=== PATIENT | female | born 1975 | race Caucasian/White ===

== ENCOUNTER 2016-06-05 15:59 | Emergency (ER) | payer BC ==
[~2016-06-05] VITALS: Ht 177.8 cm; Wt 79.4 kg
[2016-06-05 16:47] VITALS: BP 118/70
== END 2016-06-05 17:34 | disposition home or self-care (01) ==
LOC: ER 16:05
DX: T78.3XXA Angioneurotic edema, initial encounter (principal); Z72.0 Tobacco use
CPT/HCPCS: 99283; A4606; Z7610

== ENCOUNTER 2019-09-18 18:54 | Emergency (ER) | payer MEDICAID ==
[~2019-09-18] VITALS: Ht 188 cm; Wt 85.3 kg
--- NOTE | 2019-09-18 19:07 | NUR ---
URINE COLLECTED AND SENT TO THE LAB.
[2019-09-18] MEDS ORDERED: KETOROLAC TROMETHAMINE INJ 30 MG/ML VIAL ONE (19:20)
[2019-09-18] MEDS ORDERED: ONDANSETRON HCL/PF 4 MG/2 ML VIAL ONE (19:20)
--- NOTE | 2019-09-18 19:20 | NUR ---
PATIENT CAME TO ER BED 3 C/O LEFT FLANK PAIN SINCE LAST NIGHT. DENIES DYSURIA, DENIES HEMATURIA. AAOX4. NO SOB. BREATHING EVENLY AND UNLABORED ON ROOM AIR. CONNECTED TO MONITOR.
[2019-09-18] MEDS ORDERED: IV NS 0.9% 1,000 ML BAG IV ONE (19:30)
[2019-09-18] MEDS ORDERED: KETOROLAC TROMETHAMINE INJ 30 MG/ML VIAL IV ONE (19:30)
[2019-09-18] MEDS ORDERED: ONDANSETRON HCL/PF 4 MG/2 ML VIAL IVP ONE (19:30)
--- NOTE | 2019-09-18 19:30 | NUR ---
BLOOD COLLECTED AND SENT TO THE LAB.
[2019-09-18 19:33] LABS: BASOPHILS # (AUTO) 0.1 /CMM (0.0-0.2); BASOPHILS % (AUTO) 0.8 % (0.0-2.0); EOSINOPHILS % (AUTO) 1.9 % (0.0-6.0); HEMATOCRIT 49 % (39-51); HEMOGLOBIN 16.2 g/dL (13.5-17.5); LYMPHOCYTES # (AUTO) 2.8 /CMM (0.8-4.8); LYMPHOCYTES % (AUTO) 27.9 % (20.0-44.0); MEAN CORPUSCULAR HGB CONC 34 g/dl (31.0-36.0); MEAN CORPUSCULAR VOLUME 94 fL (80-96); MONOCYTES # (AUTO) 0.8 /CMM (0.1-1.30); NEUTROPHILS # (AUTO) 6.1 /CMM (1.8-8.9); NEUTROPHILS % (AUTO) 61.4 % (43.0-81.0); PLATELET COUNT (AUTO) 294 /CMM (150-450); RED BLOOD CELL COUNT(AUTO) 5.16 MIL/uL (4.5-6.0)
[2019-09-18 19:52] LABS: CALCIUM, SERUM 9.2 mg/dL (8.5-10.1); CREATININE 1.1 mg/dL (0.6-1.3); POTASSIUM 3.7 mmol/L (3.5-5.1)
--- NOTE | 2019-09-18 19:52 | NUR ---
RETURNED FROM CT
[2019-09-18 19:58] LABS: ALBUMIN 4.1 g/dL (3.4-5.0); BILIRUBIN,DIRECT 0.1 mg/dL (0.0-0.2); BILIRUBIN,TOTAL 0.2 mg/dL (0.2-1.0); TOTAL PROTEIN, SERUM 7.3 g/dL (6.4-8.2)
[2019-09-18 19:59] LABS: APPEARANCE,URINE Cloudy (CLEAR); BILIRUBIN,URINE Negative (NEGATIVE); BLOOD, URINE Negative Ery/uL (NEGATIVE); COLOR,URINE Yellow (YELLOW); KETONES,URINE Negative (NEGATIVE); LEUKOCYTE ESTERASE ,URINE Negative (NEGATIVE); NITRITE, URINE Negative (NEGATIVE); PH,URINE 5.5 (5.0-8.0); PROTEIN,URINE Negative (NEGATIVE); UGLUCOSE Negative (NEGATIVE); UROBILINOGEN,URINE 0.2 EU/dL (0.2)
[2019-09-18 20:05] LABS: BACTERIA,URINE Few /HPF (None Seen); RBC,URINE 0-2 /HPF (0-2); SQUAMOUS EPITHELIAL CELL,UR Few /HPF (None Seen); URINE AMORPHOUS URATE Moderate /HPF (None Seen); WBC,URINE 0-2 /HPF (0-3)
--- NOTE | 2019-09-18 20:26 | NUR ---
Patient is resting comfortably in bed. Easily aroused. VSS.
--- NOTE | 2019-09-18 20:34 | NUR ---
IV removed. Catheter intact and site benign. Pressure and 4x4 applied to site. No bleeding noted.
--- NOTE | 2019-09-18 20:34 | NUR ---
MD AT BEDSIDE SPEAKING TO PT
--- NOTE | 2019-09-18 20:34 | NUR ---
Patient discharged to home in stable condition. Written and verbal after care instructions given. Patient verbalizes understanding of instruction and RX. Pt ambualted with steady gait. VSS.
[2019-09-18 20:35] VITALS: BP 121/72
== END 2019-09-18 20:39 | disposition home or self-care (01) ==
LOC: ER 19:00
DX: R10.9 Unspecified abdominal pain (principal)
CPT/HCPCS: 36415; 74176; 80048; 80076; 81001; 85025; 96374; 96375; 99284; J1885; J2405; J7030; 81000-TC

== ENCOUNTER 2020-08-10 03:16 | Emergency (ER) | payer MEDICAID ==
[~2020-08-10] VITALS: Ht 170.2 cm; Wt 79.4 kg
[2020-08-10 03:33] VITALS: BP 133/79
[2020-08-10] MEDS ORDERED: IBUPROFEN 400 MG TABLET ONE (03:45)
[2020-08-10] MEDS: IBUPROFEN 400 MG TABLET PO ONE (03:48)
[2020-08-10] MEDS ORDERED: IBUP-1957 PO (04:40)
== END 2020-08-10 05:31 | disposition home or self-care (01) ==
LOC: ER 03:19
DX: M79.10 Myalgia, unspecified site (principal); M79.662 Pain in left lower leg
CPT/HCPCS: 93971-TC